=== PATIENT | female | born 1985 | race Hispanic/Latino ===

== ENCOUNTER 2017-06-03 08:55 | Emergency (ER) | payer SELFPAY ==
[2017-06-03 09:46] LABS: Bicarbonate 26 mEq/L (21-31); Glucose Level 118 mg/dL (65-120); Potassium 3.5 mEq/L (3.6-5.0); Sodium Level 136 mEq/L (135-145)
[2017-06-03 09:47] LABS: Absolute Lymphocytes (CBC) 2.4 K/uL (0.7-4.9); Absolute Monocytes 0.4 K/uL (0.1-1.3); Absolute Neutrophil 3.9 K/uL (1.8-8.0); BUN Blood Urea Nitrogen 6 mg/dL (6-20); Basophils % 0.7 % (0-1.3); Eosinophils % 2.6 % (0-4.4); Glomerular Filtration Rate > 90 mL/min (=/>90); Hematocrit 43.4 % (36.0-45.0); Lymphocytes % 34.5 % (15.3-44.8); MCH 27.2 pg (27.0-35.0); MCV 82.2 fL (80-100); MPV 8.6 fL (7.6-11.3); RBC Red Blood Cell Count 5.28 M/uL (3.86-4.86)
--- NOTE | 2017-06-03 09:58 | RAD REPORT ---
EXAM DESCRIPTION: CT - Stone Protocol - 06/03/2017 9:45 am CLINICAL HISTORY: Abdominal pain. Lower abdominal pain. Urinary frequency COMPARISON: July 2016 TECHNIQUE: Computed axial tomography of the abdomen pelvis was obtained without oral or IV contrast. Lack of IV and oral contrast limits evaluation of solid organs, bowel, and vessels. Coronal reformat jacki images were obtained and reviewed. All CT scans are performed using dose optimization technique as appropriate and may include automated exposure control or mA/KV adjustment according to patient size. FINDINGS: A 2 millimeter calculus is present within the left kidney. Mild left hydronephrosis and hy droureter is seen. 4 millimeter calculus is present at the left ureteral vesicle junction. A right renal calculus is not seen. The liver, spleen, pancreas and adrenals appear grossly normal There is no evidence of diverticulitis. The appendix appears normal A tiny umbilical hernia is present IMPRESSION: 4 millimeter calculus at the left ureterovesical junction resulting in mild left hydrone phrosis
[2017-06-03] MEDS ORDERED: KETOROLAC 30 MG/ML INJ ONE (10:11)
[2017-06-03 10:31] LABS: Urine Blood 2+ (NEG); Urine Glucose NEGATIVE (NEG); Urine Protein 1+ (NEG); Urine Specific Gravity 1.025 (1.005-1.030)
[2017-06-03] MEDS ORDERED: TAMSULOSIN 0.4 MG SR CAP ONE (10:37)
--- NOTE | 2017-06-03 10:38 | EDPHYS ---
Physician Documentation [facility] Name: Yancy Caceres Age: 31 yrs Sex: Female : 1985 Arrival Date: 06/03/2017 Time: 08:58 Bed 15 Private MD: ED Physician Ambrosio Mckeon HPI: 06/03 09:04 This 31 yrs old Female presents to ER via Unassigned with complaints of Flank kb Pain, Low Back Pain, Nausea. 09:04 The patient complains of pain in the left flank. The pain radiates to the left lower kb quadrant. Onset: The symptoms/episode began/occurred this morning, at 06:00. Modifying factors: The symptoms are alleviated by nothing. the symptoms are aggravated by palpation/percussion. Associated signs and symptoms: The patient has no apparent associated signs or symptoms. Severity of pain: At its worst the pain was severe in the emergency department the pain is unchanged. The patient has experienced a previous episode, but today's symptoms are worse. The patient has not recently seen a physician. Pt states she started having left flank pain at 0600. Pain radiates around to LLQ. States she had kidney stones in the past with similar pain. 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 - Social history:: Smoking status: Patient/guardian denies using tobacco, Patient/guardian denies using alcohol. ROS: 09:04 Constitutional: Negative for fever, chills, and weight loss, Cardiovascular: Negative kb for chest pain, palpitations, and edema, Respiratory: Negative for shortness of breath, cough, wheezing, and pleuritic chest pain, MS/Extremity: Negative for injury and deformity, Skin: Negative for injury, rash, and discoloration, Neuro: Negative for headache, weakness, numbness, tingling, and seizure. 09:04 Abdomen/GI: Positive for abdominal pain, Negative for nausea, vomiting, and diarrhea, constipation, abdominal cramps, abdominal distension, anorexia. 09:04 : Positive for flank pain. Exam: 09:04 Constitutional: This is a well developed, well nourished patient who is awake, alert, kb and in no acute distress. Head/Face: Normocephalic, atraumatic. Chest/axilla: Normal chest wall appearance and motion. Nontender with no deformity. No lesions are appreciated. Cardiovascular: Regular rate and rhythm with a normal S1 and S2. No gallops, murmurs, or rubs. Normal PMI, no JVD. No pulse deficits. Respiratory: Lungs have equal breath sounds bilaterally, clear to auscultation and percussion. No rales, rhonchi or wheezes noted. No increased work of breathing, no retractions or nasal flaring. Skin: Warm, dry with normal turgor. Normal color with no rashes, no lesions, and no evidence of cellulitis. MS/ Extremity: Pulses equal, no cyanosis. Neurovascular intact. Full, normal range of motion. Neuro: Awake and alert, GCS 15, oriented to person, place, time, and situation. Cranial nerves II-XII grossly intact. Motor strength 5/5 in all extremities. Sensory grossly intact. Cerebellar exam normal. Normal gait. 09:04 Abdomen/GI: Inspection: abdomen appears normal, Bowel sounds: normal, in all quadrants, Palpation: moderate abdominal tenderness, in the left lower quadrant. 09:04 Back: pain, that is moderate, that is severe, of the left flank, ROM is normal, normal spinal alignment noted, CVA tenderness, that is severe, is noted on the left. Vital Signs: 09:07 BP 150 / 112; Pulse 103; Resp 18; Temp 98.4(TE); Pulse Ox 100% on R/A; Weight 99.79 kg; Height 5 ft. 3 in. (160.02 cm); Pain 10/10; 10:27 BP 123 / 79; Pulse 85; Resp 18; Temp 98.1; Pulse Ox 100% on R/A; hj 09:07 Body Mass Index 38.97 (99.79 kg, 160.02 cm) MDM: 09:00 Patient medically screened. kb 09:07 Data reviewed: vital signs, nurses notes. Data interpreted: Pulse oximetry: on room air kb is 100 %. Interpretation: normal. 10:25 Counseling: I had a detailed discussion with the patient and/or guardian regarding: the kb historical points, exam findings, and any diagnostic results supporting the discharge/admit diagnosis, lab results, radiology results, the need for outpatient follow up, a urologist, to return to the emergency department if symptoms worsen or persist or if there are any questions or concerns that arise at home. ED course: Pain controlled at this time. Educated on diagnostics, medications and follow up. Verbal understanding received. . 06/03 09:08 Order name: CBC with Diff; Complete Time: 09:47 kb 06/03 09:08 Order name: Basic Metabolic Panel; Complete Time: 09:47 kb 06/03 09:08 Order name: CT Stone Protocol; Complete Time: 10:00 kb 06/03 09:34 Order name: Urine Dipstick--Ancillary (enter results); Complete Time: 10:34 ms 06/03 09:34 Order name: Urine --Ancillary (enter results); Complete Time: 10:34 ms 06/03 09:08 Order name: IV Start; Complete Time: 09:25 kb 06/03 09:08 Order name: Urine Dipstick-Ancillary (obtain specimen); Complete Time: 09:25 kb 06/03 09:08 Order name: Urine Test (obtain specimen); Complete Time: 09:25 kb 06/03 10:25 Order name: Vital Signs; Complete Time: 10:27 kb Administered Medications: 09:09 Drug: NS 0.9% 1000 ml Route: IV; Rate: 1000 ml; Site: right antecubital; hj 11:07 Follow up: IV Status: Completed infusion hj 09:09 Drug: Zofran 4 mg Route: IVP; Site: right antecubital; hj 09:54 Follow up: Response: No adverse reaction; Nausea is decreased hj 09:09 Drug: morphine 4 mg Route: IVP; Site: right antecubital; hj 09:54 Follow up: Response: Pain is unchanged, physician notified hj 09:51 Drug: TORadol 30 mg Route: IVP; Site: right antecubital; hj 09:55 Follow up: Response: No adverse reaction hj 10:01 Drug: Flomax 0.4 mg Route: PO; hj 10:20 Follow up: Response: No adverse reaction Disposition: 13:44 Co-signature as Attending Physician, Ambrosio Mckeon MD I agree with the assessment and kdr plan of care. Disposition: 06/03/17 10:38 Discharged to Home. Impression: Calculus of kidney and ureter. - Condition is Stable. - Discharge Instructions: Kidney Stones, [id number], Dietary Guidelines to Help Prevent Kidney Stones. - Prescriptions for Tylenol- Codeine #3 300-30 mg Oral Tablet - take 1 tablet by ORAL route every 6 hours As needed; 15 tablet. Zofran 4 mg Oral Tablet - take 1 tablet by ORAL route every 6 hours As needed; 20 tablet. Flomax 0.4 mg Oral Capsule, Sust. Release 24 hr - take 1 capsule by ORAL route once daily; 10 capsule. Diclofenac Sodium 75 mg Oral Tablet, Delayed Release (E.C.) - take 1 tablet by ORAL route 2 times per day As needed; 30 tablet. Macrobid 100 mg Oral Capsule - take 1 capsule by ORAL route every 12 hours for 7 days; 14 capsule. - Medication Reconciliation Form, Thank You Letter, Antibiotic Education, Prescription Opioid Use form. - Follow up: Emergency Department; When: As needed; Reason: Worsening of condition. Follow up: Private Physician; When: 2 - 3 days; Reason: Recheck today's complaints, Continuance of care, Re-evaluation by your physician. Follow up: Brisa Quigley; When: 2 - 3 days; Reason: Recheck today's complaints. Signatures: Dispatcher [employer] Amelia Lau, JANICE-Yenny JIMENEZP-Ambrosio Brown MD MD kdr Joaquin, Henry RN RN hj
--- NOTE | 2017-06-03 10:38 | ER ---
Nurse's Notes [facility] Name: Yancy Caceres Age: 31 yrs Sex: Female : 1985 Arrival Date: 06/03/2017 Time: 08:58 Bed 15 Private MD: Diagnosis: Calculus of kidney and ureter Presentation: 06/03 09:04 Presenting complaint: Patient states: i have this terrible pain on my L flank that runs hj to my L lower abd, started 6 am today; per pt, hx of kidney stone;. Transition of care: patient was not received from another setting of care. Onset of symptoms was June 03, 2017. Care prior to arrival: None. 09:04 Method Of Arrival: Ambulatory 09:04 Acuity: HOLLIE 3 hj Triage Assessment: 09:06 General: Appears in no apparent distress. uncomfortable, Behavior is cooperative, hj appropriate for age, anxious, crying. Pain: Complains of pain in left lower quadrant and left flank Pain currently is 10 out of 10 on a pain scale. EENT: No signs and/or symptoms were reported regarding the EENT system. Neuro: Level of Consciousness is awake, alert, obeys commands, Oriented to person, place, time, situation, Appropriate for age. Cardiovascular: Capillary refill < 3 seconds Patient's skin is warm and dry. Respiratory: Airway is patent Respiratory effort is even, unlabored, Respiratory pattern is regular, symmetrical. GI: Reports lower abdominal pain. : No signs and/or symptoms were reported regarding the genitourinary system. Derm: No signs and/or symptoms reported regarding the dermatologic system. Musculoskeletal: No signs and/or symptoms reported regarding the musculoskeletal system. 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 - Social history:: Smoking status: Patient/guardian denies using tobacco, Patient/guardian denies using alcohol. Screenin:08 Abuse screen: Denies threats or abuse. Denies injuries from another. Nutritional hj screening: No deficits noted. Tuberculosis screening: No symptoms or risk factors identified. Fall Risk None identified. Assessment: 09:09 General: Appears in no apparent distress. uncomfortable, Behavior is cooperative, hj appropriate for age, anxious, crying. Pain: Complains of pain in abdomen and left lower quadrant and left flank. Neuro: Level of Consciousness is awake, alert, obeys commands, Oriented to person, place, time, situation, Appropriate for age. Cardiovascular: Capillary refill < 3 seconds Patient's skin is warm and dry. Respiratory: Airway is patent Respiratory effort is even, unlabored, Respiratory pattern is regular, symmetrical. GI: Abdomen is non-distended. : No signs and/or symptoms were reported regarding the genitourinary system. : Reports hx of kidney stone;. EENT: No signs and/or symptoms were reported regarding the EENT system. Derm: No signs and/or symptoms reported regarding the dermatologic system. Musculoskeletal: No signs and/or symptoms reported regarding the musculoskeletal system. 09:30 Reassessment: wheeled to CT;. hj Vital Signs: 09:07 BP 150 / 112; Pulse 103; Resp 18; Temp 98.4(TE); Pulse Ox 100% on R/A; Weight 99.79 kg; hj Height 5 ft. 3 in. (160.02 cm); Pain 10/10; 10:27 BP 123 / 79; Pulse 85; Resp 18; Temp 98.1; Pulse Ox 100% on R/A; hj 09:07 Body Mass Index 38.97 (99.79 kg, 160.02 cm) hj ED Course: 08:58 Patient arrived in ED. rg4 08:59 Amelia Angelo FNP-C [facility]. kb 08:59 Ambrosio Mckeon MD is Attending Physician. kb 09:01 Ryan Celis, PIPE is Primary Nurse. hj 09:05 Triage completed. hj 09:08 Arm band placed on right wrist. hj 09:09 Patient has correct armband on for positive identification. Placed in gown. Bed in low hj position. Call light in reach. Side rails up X 1. 09:09 Initial lab(s) drawn, by ED staff, sent to lab. Inserted saline lock: 22 gauge in right hj antecubital area, using aseptic technique. Blood collected. 09:15 Radiology exam delayed due to test not completed at this time. vr 09:35 Urine collected: clean catch specimen, cloudy. 5 09:45 CT Stone Protocol In Process Unspecified. EDMS 10:38 Brisa Quigley MD is Referral Physician. kb 11:05 No provider procedures requiring assistance completed. IV discontinued, intact, hj bleeding controlled, No redness/swelling at site. Pressure dressing applied. Administered Medications: 09:09 Drug: NS 0.9% 1000 ml Route: IV; Rate: 1000 ml; Site: right antecubital; hj 11:07 Follow up: IV Status: Completed infusion hj 09:09 Drug: Zofran 4 mg Route: IVP; Site: right antecubital; hj 09:54 Follow up: Response: No adverse reaction; Nausea is decreased hj 09:09 Drug: morphine 4 mg Route: IVP; Site: right antecubital; hj 09:54 Follow up: Response: Pain is unchanged, physician notified hj 09:51 Drug: TORadol 30 mg Route: IVP; Site: right antecubital; hj 09:55 Follow up: Response: No adverse reaction hj 10:01 Drug: Flomax 0.4 mg Route: PO; hj 10:20 Follow up: Response: No adverse reaction hj Outcome: 10:38 Discharge ordered by MD. kb 11:06 Discharged to home ambulatory. hj 11:06 Condition: stable 11:06 Discharge instructions given to patient, Instructed on discharge instructions, follow up and referral plans. medication usage, Demonstrated understanding of instructions, follow-up care, medications, Prescriptions given X 5 meds 11:06 Patient left the ED. hj Signatures: Dispatcher [employer] EDMS Amelia Angelo, [place]-Ashlyn Tony Henry, Estrellita Stiles RN, Maria [facility], [place]
== END 2017-06-03 11:06 | disposition home or self-care (01) ==
LOC: ER 08:55
DX: N20.2 Calculus of kidney with calculus of ureter (principal)
CPT/HCPCS: 36415; 74176; 76377; 80048; 81003; 81025; 85025; 96361; 96374; 96375; 99284

== ENCOUNTER 2019-02-02 08:48 | Emergency (ER) | payer SELFPAY ==
[2019-02-02] MEDS ORDERED: KETOROLAC 30 MG/ML INJ ONE (09:17)
[2019-02-02] MEDS ORDERED: dexAMETHasone 10 MG/ML VIAL ONE (09:17)
[2019-02-02] MEDS ORDERED: NA CHLORIDE 0.9% 1,000 ML ONE (09:17)
[2019-02-02] MEDS ORDERED: METOCLOPRAMIDE 10 MG/2mL INJ ONE (09:17)
--- NOTE | 2019-02-02 10:07 | ER ---
Nurse's Notes [facility] Name: Yancy Caceres Age: 33 yrs Sex: Female : 1985 Arrival Date: 02/02/2019 Time: 08:50 Bed 14 Private MD: Diagnosis: Headache;Myalgia Presentation: 02/02 08:55 Presenting complaint: Upper back and neck pain x 3 days. Transition of care: patient hb was not received from another setting of care. Onset of symptoms was January 31, 2019. Risk Assessment: Do you want to hurt yourself or someone else? Patient reports no desire to harm self or others. Initial Sepsis Screen: Does the patient meet any 2 criteria? No. Patient's initial sepsis screen is negative. Does the patient have a suspected source of infection? No. Patient's initial sepsis screen is negative. Care prior to arrival: None. 08:55 Method Of Arrival: Ambulatory hb 08:55 Acuity: HOLLIE 4 hb Triage Assessment: 08:55 Headache History: Denies prior headaches. Pain: Also complains of no other associated rb1 symptoms. 08:55 Pain: Pain currently is 8 out of 10 on a pain scale. 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 - Social history:: Smoking status: Patient/guardian denies using tobacco. - Ebola Screening: : No symptoms or risks identified at this time. Screenin:55 Abuse screen: Denies threats or abuse. Nutritional screening: No deficits noted. rb1 Tuberculosis screening: No symptoms or risk factors identified. Fall Risk None identified. Assessment: 08:55 General: Appears in no apparent distress. comfortable, Behavior is calm, cooperative. rb1 Pain: Complains of pain in right trapezius and left trapezius and back of head Pain currently is 8 out of 10 on a pain scale. Pain began x 3 days. Neuro: Level of Consciousness is awake, alert, obeys commands, Oriented to person, place, time, situation. Cardiovascular: Capillary refill < 3 seconds is brisk in bilateral fingers. Respiratory: Airway is patent Respiratory effort is even, unlabored, Respiratory pattern is regular, symmetrical. GI: No signs and/or symptoms were reported involving the gastrointestinal system. : No signs and/or symptoms were reported regarding the genitourinary system. Derm: Skin is pink, warm \T\ dry. Musculoskeletal: Range of motion: intact in all extremities. Vital Signs: 08:56 BP 124 / 79; Pulse 68; Resp 16; Temp 98.3; Pulse Ox 99% ; Weight 113.4 kg; Height 5 ft. hb 5 in. (165.10 cm); Pain 7/10; 08:56 Body Mass Index 41.60 (113.40 kg, 165.10 cm) hb [place] Coma Score: 09:09 Eye Response: spontaneous(4). Verbal Response: oriented(5). Motor Response: obeys kb commands(6). Total: 15. ED Course: 08:50 Patient arrived in ED. as 08:55 Patient has correct armband on for positive identification. Bed in low position. Call rb1 light in reach. Side rails up X 1. Pulse ox on. NIBP on. 08:56 Triage completed. hb 08:56 Arm band placed on. hb 09:04 Amelia Angel[facility] F[facility]-C [facility]. kb 09:04 Porter Resendiz MD is Attending Physician. kb 09:11 Aracely Kim, PIPE is Primary Nurse. rb1 09:25 Inserted saline lock: 22 gauge in right antecubital area, using aseptic technique. rb1 Blood collected. 10:14 IV discontinued, intact, bleeding controlled, No redness/swelling at site. Pressure hb dressing applied. 10:14 No provider procedures requiring assistance completed. rb1 Administered Medications: 09:25 Drug: NS 0.9% 1000 ml Route: IV; Rate: 1000 ml; Site: right antecubital; rb1 10:10 Follow up: IV Status: Completed infusion rb1 09:25 Drug: Reglan 10 mg Route: IVP; Site: right antecubital; rb1 09:40 Follow up: Response: No adverse reaction rb1 09:25 Drug: TORadol - Ketorolac 15 mg Route: IVP; Site: right antecubital; rb1 09:40 Follow up: Response: No adverse reaction; Pain is decreased rb1 09:25 Drug: Decadron - Dexamethasone 10 mg Route: IVP; Site: right antecubital; rb1 09:40 Follow up: Response: No adverse reaction rb1 Outcome: 10:07 Discharge ordered by . irvin 10:14 Discharged to home ambulatory, with family. hb 10:14 Condition: stable 10:14 Discharge instructions given to patient, family, Instructed on discharge instructions, follow up and referral plans. medication usage, Demonstrated understanding of instructions, follow-up care, medications, Prescriptions given X 2. 10:14 Patient left the ED. hb Signatures: Amelia Angelo, JANICE-C JANICE-Rehana Rivera Rebecca, RN RN rb1 Eli Arroyo, RN RN hb
--- NOTE | 2019-02-02 10:08 | EDPHYS ---
Physician Documentation [facility] Name: Yancy Caceres Age: 33 yrs Sex: Female : 1985 Arrival Date: 02/02/2019 Time: 08:50 Bed 14 Private MD: ED Physician Porter Resendiz HPI: 02/02 09:09 This 33 yrs old Female presents to ER via Ambulatory with complaints of kb Headache. 09:09 The patient complains of pain to the left base of the skull and right base of the kb skull. The patient describes the headache as constant. Onset: The symptoms/episode began/occurred 3 day(s) ago. Associated signs and symptoms: Pertinent positives: This patient does not have any pertinent positive signs or symptoms associated with a headache. Pertinent negatives: fever, nausea, Photophobia. Severity of symptoms: At its worst the pain was moderate, in the emergency department the pain is unchanged. Headache History: Denies prior headaches. The symptoms are alleviated by nothing. the symptoms are aggravated by nothing. The patient has not experienced similar symptoms in the past. The patient has not recently seen a physician. Pt reports headache to base of head that radiates into shoulders. No vertebral tenderness, fever.. 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 - Social history:: Smoking status: Patient/guardian denies using tobacco. - Ebola Screening: : No symptoms or risks identified at this time. ROS: 09:09 Constitutional: Negative for fever, chills, and weight loss, Cardiovascular: Negative kb for chest pain, palpitations, and edema, Respiratory: Negative for shortness of breath, cough, wheezing, and pleuritic chest pain, Abdomen/GI: Negative for abdominal pain, nausea, vomiting, diarrhea, and constipation, MS/Extremity: Negative for injury and deformity, Skin: Negative for injury, rash, and discoloration. 09:09 Neck: Positive for pain with movement, pain at rest, tenderness, of the left trapezius and right trapezius. 09:09 Neuro: Positive for headache. Exam: 10:06 Constitutional: This is a well developed, well nourished patient who is awake, alert, kb and in no acute distress. Head/Face: Normocephalic, atraumatic. ENT: Nares patent. No nasal discharge, no septal abnormalities noted. Tympanic membranes are normal and external auditory canals are clear. Oropharynx with no redness, swelling, or masses, exudates, or evidence of obstruction, uvula midline. Mucous membranes moist. Neck: Trachea midline, no thyromegaly or masses palpated, and no cervical lymphadenopathy. Supple, full range of motion without nuchal rigidity, or vertebral point tenderness. No Meningismus. Chest/axilla: Normal chest wall appearance and motion. Nontender with no deformity. No lesions are appreciated. Cardiovascular: Regular rate and rhythm with a normal S1 and S2. No gallops, murmurs, or rubs. Normal PMI, no JVD. No pulse deficits. Respiratory: Lungs have equal breath sounds bilaterally, clear to auscultation and percussion. No rales, rhonchi or wheezes noted. No increased work of breathing, no retractions or nasal flaring. Abdomen/GI: Soft, non-tender, with normal bowel sounds. No distension or tympany. No guarding or rebound. No evidence of tenderness throughout. Skin: Warm, dry with normal turgor. Normal color with no rashes, no lesions, and no evidence of cellulitis. MS/ Extremity: Pulses equal, no cyanosis. Neurovascular intact. Full, normal range of motion. Neuro: Awake and alert, GCS 15, oriented to person, place, time, and situation. Cranial nerves II-XII grossly intact. Motor strength 5/5 in all extremities. Sensory grossly intact. Cerebellar exam normal. Normal gait. 10:06 Back: pain, that is moderate, of the left trapezius and right trapezius. Vital Signs: 08:56 BP 124 / 79; Pulse 68; Resp 16; Temp 98.3; Pulse Ox 99% ; Weight 113.4 kg; Height 5 ft. hb 5 in. (165.10 cm); Pain 7/10; 08:56 Body Mass Index 41.60 (113.40 kg, 165.10 cm) hb Nai Coma Score: 09:09 Eye Response: spontaneous(4). Verbal Response: oriented(5). Motor Response: obeys kb commands(6). Total: 15. MDM: 09:04 Patient medically screened. kb 09:09 Data reviewed: vital signs, nurses notes. Data interpreted: Pulse oximetry: on room air kb is 99 %. Interpretation: normal. 10:06 Counseling: I had a detailed discussion with the patient and/or guardian regarding: the kb historical points, exam findings, and any diagnostic results supporting the discharge/admit diagnosis, the need for outpatient follow up, a family practitioner, a neurologist, to return to the emergency department if symptoms worsen or persist or if there are any questions or concerns that arise at home. 02/02 09:09 Order name: IV Start; Complete Time: 09:32 kb Administered Medications: 09:25 Drug: NS 0.9% 1000 ml Route: IV; Rate: 1000 ml; Site: right antecubital; rb1 10:10 Follow up: IV Status: Completed infusion rb1 09:25 Drug: Reglan 10 mg Route: IVP; Site: right antecubital; rb1 09:40 Follow up: Response: No adverse reaction rb1 09:25 Drug: TORadol - Ketorolac 15 mg Route: IVP; Site: right antecubital; rb1 09:40 Follow up: Response: No adverse reaction; Pain is decreased rb1 09:25 Drug: Decadron - Dexamethasone 10 mg Route: IVP; Site: right antecubital; rb1 09:40 Follow up: Response: No adverse reaction rb1 Disposition: 17:41 Co-signature as Attending Physician, Porter Resendiz MD Did not see or evaluate the ps1 patient. Signing the chart for administrative purposes. Not an endorsement of care provided. . Disposition: 02/02/19 10:07 Discharged to Home. Impression: Headache, Myalgia. - Condition is Stable. - Discharge Instructions: Muscle Pain, Adult, General Headache Without Cause, [id number]. - Prescriptions for Cyclobenzaprine 10 mg Oral Tablet - take 1 tablet by ORAL route every 8 hours As needed; 21 tablet. Diclofenac Sodium 75 mg Oral Tablet, Delayed Release (E.C.) - take 1 tablet by ORAL route 2 times per day As needed; 30 tablet. - Medication Reconciliation Form, Thank You Letter, Antibiotic Education, Prescription Opioid Use form. - Follow up: Emergency Department; When: As needed; Reason: Worsening of condition. Follow up: Private Physician; When: 2 - 3 days; Reason: Recheck today's complaints, Continuance of care, Re-evaluation by your physician. Signatures: Amelia Angelo FNP-C FNP-Aracely Taveras, RN RN [facility] Eli Arroyo RN RN Porter Resendiz MD MD ps1 Corrections: (The following items were deleted from the chart) 10:14 10:07 02/02/2019 10:07 Discharged to Home. Impression: Headache; Myalgia. Condition is hb Stable. Forms are Medication Reconciliation Form, Thank You Letter, Antibiotic Education, Prescription Opioid Use. Follow up: Emergency Department; When: As needed; Reason: Worsening of condition. Follow up: Private Physician; When: 2 - 3 days; Reason: Recheck today's complaints, Continuance of care, Re-evaluation by your physician. kb
[2019-02-02 10:22] VITALS: BP 124/79; TEMP 98.3; O2SAT 99
== END 2019-02-02 10:14 | disposition home or self-care (01) ==
LOC: ER 08:48
DX: R51 Headache (principal); M79.10 Myalgia, unspecified site
CPT/HCPCS: 96361; 96374; 96375; 99284; J1100; J2765; J7030

== ENCOUNTER 2020-02-20 05:52 | Emergency (ER) | payer SELFPAY ==
--- OUTSIDE RECORDS SUMMARY | 2020-02-20 05:54 | XMS REPORT | Continuity of Care Document ---
:1985 Author Organization [facility] t Address [address] [place] [address] Care Team Providers Name Role Phone Isabella Gonzalez Attending Clinician Problems This patient has no known problems. Allergies, Adverse Reactions, Alerts This patient has no known allergies or adverse reactions. Medications This patient has no known medications. Procedures This patient has no known procedures. 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
[2020-02-20] MEDS ORDERED: IBUPROFEN 400 MG TAB ONE (06:46)
--- NOTE | 2020-02-20 08:13 | RAD REPORT ---
EXAM DESCRIPTION: RAD - Ankle Left 3 View - 02/20/2020 7:34 am CLINICAL HISTORY: PAIN, pain with weight-bearing, no known precipitating injury COMPARISON: No comparisons FINDINGS: No fracture, dislocation or periosteal reaction. No joint effusion seen. No joint space na rrowing. No plantar spur identified. Soft tissues around the ankle are prominent with the baseline fo r the patient unknown. IMPRESSION: No acute bone or joint finding. Soft tissue swelling evident with the baseline soft tissue appearance unknown.
--- NOTE | 2020-02-20 08:14 | RAD REPORT ---
EXAM DESCRIPTION: RAD - Foot Left 3 View - 02/20/2020 7:34 am CLINICAL HISTORY: PAIN, pain with weight-bearing common no known precipitating event COMPARISON: No comparisons FINDINGS: No fracture, dislocation or periosteal reaction. No acute or destructive bony process. Soft tissues around the ankle and foot are prominent. Baseline for the patient is unknown. IMPRESSION: Soft tissue swelling is evident with the baseline appearance for the patient unknown. No air or foreign body in the soft tissues. No acute bone or joint finding.
--- NOTE | 2020-02-20 13:20 | ER ---
Nurse's Notes [facility] Name: Yancy Caceres Age: 34 yrs Sex: Female : 1985 Arrival Date: 02/20/2020 Time: 05:55 Bed 25 Private MD: Diagnosis: Sprain of ankle;Sprain of foot Presentation: 02/19 06:28 Chief complaint: Patient states: Left foot pain since Sunday, denies any known injury. aj1 States she was walking to the bathroom and suddenly the foot started hurting so bad that she can't walk on it. Coronavirus screen: At this time, the client does not indicate any symptoms associated with coronavirus-19. Ebola Screen: Patient denies travel to an Ebola-affected area in the 21 days before illness onset. Initial Sepsis Screen: Does the patient meet any 2 criteria? No. Patient's initial sepsis screen is negative. Does the patient have a suspected source of infection? No. Patient's initial sepsis screen is negative. Risk Assessment: Do you want to hurt yourself or someone else? Patient reports no desire to harm self or others. Onset of symptoms was February 2020. 06:28 Method Of Arrival: Wheelchair aj1 06:28 Acuity: HOLLIE 4 aj1 Triage Assessment: 06:30 General: Appears in no apparent distress. uncomfortable, Behavior is calm, cooperative, aj1 appropriate for age. Pain: Complains of pain in left foot Pain does not radiate. Pain currently is 10 out of 10 on a pain scale. Neuro: Level of Consciousness is awake, alert, obeys commands, Oriented to person, place, time, situation. Cardiovascular: Patient's skin is warm and dry. Respiratory: Airway is patent Respiratory effort is even, unlabored, Respiratory pattern is regular, symmetrical. GI: No signs and/or symptoms were reported involving the gastrointestinal system. : No signs and/or symptoms were reported regarding the genitourinary system. 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 - Social history:: Smoking status: Patient/guardian denies using tobacco. - Family history:: not pertinent. Screenin:48 Abuse screen: Denies threats or abuse. Denies injuries from another. Nutritional sg screening: No deficits noted. Tuberculosis screening: No symptoms or risk factors identified. Never had TB. Fall Risk None identified. Assessment: 06:48 Reassessment: xray at bedside at this time. sg 06:50 General: Appears in no apparent distress. well groomed, well developed, well nourished, sg Behavior is calm, cooperative, appropriate for age. Pain: Complains of pain in dorsum of left foot Quality of pain is described as aching. Neuro: Level of Consciousness is awake, alert, obeys commands, Facial symmetry appears normal. Cardiovascular: Patient's skin is warm and dry. Respiratory: Airway is patent Respiratory effort is even, unlabored, Respiratory pattern is regular, symmetrical. GI: No signs and/or symptoms were reported involving the gastrointestinal system. : No signs and/or symptoms were reported regarding the genitourinary system. EENT: No signs and/or symptoms were reported regarding the EENT system. Derm: Skin is pink, warm \T\ dry. Musculoskeletal: Circulation, motion, and sensation intact. Range of motion: intact in all extremities. Vital Signs: 06:28 BP 110 / 65; Pulse 77; Resp 18; Temp 98.1; Pulse Ox 100% on R/A; Weight 104.33 kg (R); aj1 Height 5 ft. 3 in. (160.02 cm) (R); Pain 10/10; 06:28 Body Mass Index 40.74 (104.33 kg, 160.02 cm) aj1 ED Course: 05:55 Patient arrived in ED. am2 06:16 Rosalio Correa MD is Attending Physician. [facility] 06:30 Triage completed. aj1 06:30 Arm band placed on Patient placed in waiting room. aj1 06:48 No provider procedures requiring assistance completed. Patient did not have IV access sg during this emergency room visit. 06:50 Patient has correct armband on for positive identification. Bed in low position. Call sg light in reach. Pulse ox on. NIBP on. 07:19 Julio Cesar Huang MD is Referral Physician. shalini Administered Medications: 06:34 Drug: Motrin 400 mg Route: PO; aj1 06:47 Follow up: Response: No adverse reaction sg Outcome: 07:19 Discharge ordered by . shalini 07:44 Patient left the ED. sg Signatures: Ronit Sanchez RN RN aj1 Bonifacio Coronado RN RN sg Anderson, Corey, MD MD cha Moreno, Amanda am2
--- NOTE | 2020-02-20 13:20 | EDPHYS ---
Physician Documentation [facility] Name: Yancy Caceres Age: 34 yrs Sex: Female : 1985 Arrival Date: 02/20/2020 Time: 05:55 Bed 25 Private MD: ED Physician Rosalio Correa HPI: 02/19 06:17 This 34 yrs old Female presents to ER via Unassigned with complaints of Foot shalini Pain. 06:17 The patient presents with decreased range of motion, pain, that is acute. The shalini complaints affect the left foot, dorsum of left foot. Context: The problem was sustained at an unknown location, resulted from an unknown cause. Onset: The symptoms/episode began/occurred 2 day(s) ago. Modifying factors: The symptoms are alleviated by elevation of extremity, the symptoms are aggravated by weight bearing, movement. Associated signs and symptoms: The patient has no apparent associated signs or symptoms. Severity of symptoms: At their worst the symptoms were mild, moderate, in the emergency department the symptoms are unchanged. The patient has not experienced similar symptoms in the past. 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 - Social history:: Smoking status: Patient/guardian denies using tobacco. - Family history:: not pertinent. ROS: 06:17 Constitutional: Negative for fever, chills, and weight loss, Eyes: Negative for injury, shalini pain, redness, and discharge, ENT: Negative for injury, pain, and discharge, Neck: Negative for injury, pain, and swelling, Cardiovascular: Negative for chest pain, palpitations, and edema, Respiratory: Negative for shortness of breath, cough, wheezing, and pleuritic chest pain, Abdomen/GI: Negative for abdominal pain, nausea, vomiting, diarrhea, and constipation, Back: Negative for injury and pain, : Negative for injury, bleeding, discharge, and swelling, Skin: Negative for injury, rash, and discoloration, Neuro: Negative for headache, weakness, numbness, tingling, and seizure, Psych: Negative for depression, anxiety, suicide ideation, homicidal ideation, and hallucinations, Allergy/Immunology: Negative for hives, rash, and allergies, Endocrine: Negative for neck swelling, polydipsia, polyuria, polyphagia, and marked weight changes, Hematologic/Lymphatic: Negative for swollen nodes, abnormal bleeding, and unusual bruising. 06:17 MS/extremity: Positive for decreased range of motion, pain, tenderness, of the dorsum of left foot. Exam: 06:17 Constitutional: This is a well developed, well nourished patient who is awake, alert, shalini and in no acute distress. Head/Face: Normocephalic, atraumatic. Eyes: Pupils equal round and reactive to light, extra-ocular motions intact. Lids and lashes normal. Conjunctiva and sclera are non-icteric and not injected. Cornea within normal limits. Periorbital areas with no swelling, redness, or edema. ENT: Nares patent. No nasal discharge, no septal abnormalities noted. Tympanic membranes are normal and external auditory canals are clear. Oropharynx with no redness, swelling, or masses, exudates, or evidence of obstruction, uvula midline. Mucous membranes moist. Neck: Trachea midline, no thyromegaly or masses palpated, and no cervical lymphadenopathy. Supple, full range of motion without nuchal rigidity, or vertebral point tenderness. No Meningismus. Chest/axilla: Normal chest wall appearance and motion. Nontender with no deformity. No lesions are appreciated. Cardiovascular: Regular rate and rhythm with a normal S1 and S2. No gallops, murmurs, or rubs. Normal PMI, no JVD. No pulse deficits. Respiratory: Lungs have equal breath sounds bilaterally, clear to auscultation and percussion. No rales, rhonchi or wheezes noted. No increased work of breathing, no retractions or nasal flaring. Abdomen/GI: Soft, non-tender, with normal bowel sounds. No distension or tympany. No guarding or rebound. No evidence of tenderness throughout. Back: No spinal tenderness. No costovertebral tenderness. Full range of motion. Skin: Warm, dry with normal turgor. Normal color with no rashes, no lesions, and no evidence of cellulitis. Neuro: Awake and alert, GCS 15, oriented to person, place, time, and situation. Cranial nerves II-XII grossly intact. Motor strength 5/5 in all extremities. Sensory grossly intact. Cerebellar exam normal. Normal gait. Psych: Awake, alert, with orientation to person, place and time. Behavior, mood, and affect are within normal limits. 06:17 Musculoskeletal/extremity: Extremities: noted in the dorsum of left foot: decreased ROM, pain, ROM: full active range of motion, full passive range of motion, Circulation is intact in all extremities. Sensation intact. Compartment Syndrome exam of affected extremity: is normal. Joints: limited range of motion, pain at rest, painful range of motion, tenderness, Weight bearing: able to fully bear weight, DVT Exam: no swelling, negative Homans' sign noted on exam, no appreciated bluish discoloration, no erythema, no increased warmth, pain, tenderness. Vital Signs: 06:28 BP 110 / 65; Pulse 77; Resp 18; Temp 98.1; Pulse Ox 100% on R/A; Weight 104.33 kg (R); aj1 Height 5 ft. 3 in. (160.02 cm) (R); Pain 10/10; 06:28 Body Mass Index 40.74 (104.33 kg, 160.02 cm) aj MDM: 06:17 Differential diagnosis: fracture, sprain, arthritis. Data reviewed: vital signs, nurses [facility] notes, radiologic studies, plain films. Data interpreted: library monitor: not applicable for this patient encounter. rate is 76 beats/min, rhythm is regular, Pulse oximetry: on room air is 96 %. Test interpretation: by ED physician or midlevel provider: plain radiologic studies. Counseling: I had a detailed discussion with the patient and/or guardian regarding: the historical points, exam findings, and any diagnostic results supporting the discharge/admit diagnosis, radiology results, the need for outpatient follow up, for definitive care, a orthopedic surgeon. 06:47 Patient medically screened. [facility] 02/19 06:17 Order name: Bakari wrap-joint; Complete Time: 07:39 [facility] 02/19 06:17 Order name: Ice pack; Complete Time: 06:34 [facility] 02/19 07:30 Order name: Post-op shoe; Complete Time: 07:39 [facility] Administered Medications: 06:34 Drug: Motrin 400 mg Route: PO; [facility] 06:47 Follow up: Response: No adverse reaction sg Disposition: 02/20/20 07:19 Discharged to Home. Impression: Sprain of ankle, Sprain of foot. - Condition is Stable. - Discharge Instructions: Ankle Sprain, Foot Sprain, Ankle Sprain, [id number], Ankle Pain. - Prescriptions for Motrin IB 200 mg Oral Tablet - take 2 tablet by ORAL route every 6 hours As needed as needed with food; 30 tablet. Tylenol- Codeine #3 300-30 mg Oral Tablet - take 2 tablets by ORAL route every 6 hours As needed; 20 tablet. - Medication Reconciliation Form, Thank You Letter, Antibiotic Education, Prescription Opioid Use form. - Follow up: Private Physician; When: 2 - 3 days; Reason: Recheck today's complaints, Continuance of care, Re-evaluation by your physician. Follow up: Julio Cesar Huang; When: 2 - 3 days; Reason: Recheck today's complaints, Re-evaluation by your physician. - Problem is new. - Symptoms have improved. Signatures: Ronit Sanchez RN RN aj1 Bonifacio Coronado RN RN sg Rosalio Correa MD MD cha Corrections: (The following items were deleted from the chart) 07:44 07:19 02/20/2020 07:19 Discharged to Home. Impression: Sprain of ankle; Sprain of foot. sg Condition is Stable. Discharge Instructions: Ankle Sprain, Ankle Sprain, [id number], Ankle Pain. Prescriptions for Motrin IB 200 mg Oral Tablet - take 2 tablet by ORAL route every 6 hours As needed as needed with food; 30 tablet. and Forms are Medication Reconciliation Form, Thank You Letter, Antibiotic Education, Prescription Opioid Use. Follow up: Private Physician; When: 2 - 3 days; Reason: Recheck today's complaints, Continuance of care, Re-evaluation by your physician. Follow up: Julio Cesar Huang; When: 2 - 3 days; Reason: Recheck today's complaints, Re-evaluation by your physician. Problem is new. Symptoms have improved. shalini
[2020-02-23 13:24] VITALS: BP 110/65; TEMP 98.1; O2SAT 100
== END 2020-02-20 07:44 | disposition home or self-care (01) ==
LOC: ER 05:52
DX: S93.402A Sprain of unspecified ligament of left ankle, initial encounter (principal); S93.602A Unspecified sprain of left foot, initial encounter; X58.XXXA Exposure to other specified factors, initial encounter; Y93.9 Activity, unspecified; Y92.9 Unspecified place or not applicable
CPT/HCPCS: 99283

== ENCOUNTER 2020-03-06 19:38 | Emergency (ER) | payer SELFPAY ==
--- OUTSIDE RECORDS SUMMARY | 2020-03-06 19:40 | XMS REPORT | Continuity of Care Document ---
:1985 Author Organization [facility] t Address [address] [place] [address] Care Team Providers Name Role Phone Mitch PURI, [place] Attending Clinician Problems This patient has no known problems. Allergies, Adverse Reactions, Alerts This patient has no known allergies or adverse reactions. Medications This patient has no known medications. Procedures This patient has no known procedures. 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
[2020-03-06] MEDS ORDERED: ACETAMINOPHEN 500 MG TAB ONE (20:23)
--- NOTE | 2020-03-06 22:00 | ER ---
Nurse's Notes [facility] Name: Yancy Caceres Age: 34 yrs Sex: Female : 1985 Arrival Date: 03/06/2020 Time: 19:40 Bed 20 Private MD: Diagnosis: Pain in left ankle and joints of left foot Presentation: 03/06 20:04 Chief complaint: Patient states: Left foot pain continues since last visit here 02/19. ll1 No new trauma, can barely walk on it. Meds we gave her for home don't help. Coronavirus screen: Client denies travel out of the [place] in the last 14 days. At this time, the client does not indicate any symptoms associated with coronavirus-19. Ebola Screen: Patient denies travel to an Ebola-affected area in the 21 days before illness onset. Initial Sepsis Screen: Does the patient meet any 2 criteria? No. Patient's initial sepsis screen is negative. Does the patient have a suspected source of infection? Yes: Bone or joint infection. Risk Assessment: Do you want to hurt yourself or someone else? Patient reports no desire to harm self or others. Onset of symptoms was February 20, 2020. 20:04 Method Of Arrival: Wheelchair ll1 20:04 Acuity: HOLLIE 4 ll1 Triage Assessment: 20:04 General: Appears uncomfortable, Behavior is cooperative, appropriate for age, crying. ll1 Pain: Complains of pain in Top of L foot Pain currently is 10 out of 10 on a pain scale. Quality of pain is described as aching, throbbing. Neuro: No deficits noted. Cardiovascular: No deficits noted. Musculoskeletal: Circulation, motion, and sensation intact. Capillary refill < 3 seconds, Tenderness present in L foot Reports pain in L foot. Injury Description: Bruise no known new injury. Historical: - Allergies: 20:03 No Known Allergies; ll1 - PMHx: 20:03 Kidney stones; ll1 - PSHx: 20:03 Cholecystectomy; ll1 - Immunization history:: Flu vaccine is not up to date. - Social history:: Smoking status: Patient denies any tobacco usage or history of. Screenin:00 Abuse screen: Denies threats or abuse. Nutritional screening: No deficits noted. jb4 Tuberculosis screening: No symptoms or risk factors identified. Fall Risk None identified. Assessment: 21:00 General: Appears in no apparent distress. uncomfortable, Behavior is calm, cooperative, jb4 appropriate for age. Pain: Complains of pain in Left ankle Pain does not radiate. Pain currently is 10 out of 10 on a pain scale. Neuro: Level of Consciousness is awake, alert, obeys commands, Oriented to person, place, time, situation. Cardiovascular: Patient's skin is warm and dry. Respiratory: Airway is patent Respiratory effort is even, unlabored, Respiratory pattern is regular, symmetrical. GI: No signs and/or symptoms were reported involving the gastrointestinal system. : No signs and/or symptoms were reported regarding the genitourinary system. EENT: No signs and/or symptoms were reported regarding the EENT system. Derm: Skin is intact, Skin is pink, warm \T\ dry. Musculoskeletal: Circulation, motion, and sensation intact. Range of motion: intact in all extremities. 22:00 Reassessment: Patient appears in no apparent distress at this time. Patient and/or jb4 family updated on plan of care and expected duration. Pain level reassessed. Patient is alert, oriented x 3, equal unlabored respirations, skin warm/dry/pink. Vital Signs: 20:04 BP 128 / 88; Pulse 75; Resp 17; Temp 98.0; Pulse Ox 98% ; Weight 108.86 kg; Height 5 ll1 ft. 3 in. (160.02 cm); Pain 10/10; 20:04 Body Mass Index 42.51 (108.86 kg, 160.02 cm) ll1 ED Course: 19:40 Patient arrived in ED. rg4 20:03 Arm band placed on. ll1 20:05 Triage completed. ll1 20:59 Rosalio Park PA is PHCP. cp 20:59 Jb Garcia MD is Attending Physician. cp 21:00 Patient has correct armband on for positive identification. Bed in low position. Call jb4 light in reach. Side rails up X 1. 21:09 Corey Mcintosh, RN is Primary Nurse. jb4 21:58 Anoop Billings MD is Referral Physician. cp 21:59 XRAY Ankle LEFT 3 view In Process Unspecified. EDMS 22:30 No provider procedures requiring assistance completed. Patient did not have IV access jb4 during this emergency room visit. Administered Medications: 20:10 Drug: Tylenol 1000 mg Route: PO; ll1 21:00 Follow up: Response: No adverse reaction jb4 22:13 Drug: TORadol 30 mg Route: IM; Site: right deltoid; jb4 22:30 Follow up: Response: No adverse reaction jb4 Outcome: 21:58 Discharge ordered by . cp 22:30 Discharged to home via wheelchair, with family. jb4 22:30 Condition: stable 22:30 Discharge instructions given to patient, Instructed on discharge instructions, follow up and referral plans. medication usage, Demonstrated understanding of instructions, follow-up care, medications, Prescriptions given X 1. 22:42 Patient left the ED. jb4 Signatures: Dispatcher [employer] EDMS Rosalio Park PA PA cp Garcia, Rubi rg4 Corey Mcintosh RN RN jb4 Palmer Stanton RN RN ll1 Corrections: (The following items were deleted from the chart) 20:38 20:36 General: Appears uncomfortable, Behavior is cooperative, appropriate for age, ll1 crying, ll1 20:38 20:36 Pain: Complains of pain in Top of L foot Pain currently is 10 out of 10 on a pain ll1 scale. Quality of pain is described as aching, throbbing, ll1 20:38 20:36 Neuro: No deficits noted. ll1 ll1 20:38 20:36 Cardiovascular: No deficits noted. ll1 ll1 20:38 20:36 Musculoskeletal: Circulation, motion, and sensation intact. Capillary refill < 3 ll1 seconds, Tenderness present in L foot Reports pain in L foot ll1 20:38 20:36 Injury Description: Bruise no known new injury ll1 ll1
--- NOTE | 2020-03-06 22:00 | EDPHYS ---
Physician Documentation [facility] Name: Yancy Caceres Age: 34 yrs Sex: Female : 1985 Arrival Date: 03/06/2020 Time: 19:40 Bed 20 Private MD: ED Physician Jb Garcia HPI: 03/06 21:33 This 34 yrs old Female presents to ER via Wheelchair with complaints of Foot cp Injury. 21:33 The patient presents with pain, that is acute. The complaints affect the left lateral cp ankle. Context: resulted from an unknown cause, the patient can fully bear weight. 21:33 The patient has been recently seen at the [facility] Emergency cp Department, a couple of weeks ago, for similar complaints X-rays were performed, was given a prescription for pain medications, patient denies injury to left ankle. Historical: - Allergies: 20:03 No Known Allergies; ll1 - PMHx: 20:03 Kidney stones; ll1 - PSHx: 20:03 Cholecystectomy; ll1 - Immunization history:: Flu vaccine is not up to date. - Social history:: Smoking status: Patient denies any tobacco usage or history of. ROS: 21:40 MS/extremity: Positive for pain, swelling, tenderness, of the left lateral ankle, cp Negative for injury or acute deformity, decreased range of motion, paresthesias. 21:40 Constitutional: Negative for body aches, chills, fever, poor PO intake. cp 21:40 Cardiovascular: Negative for chest pain. 21:40 Respiratory: Negative for cough, shortness of breath, wheezing. 21:40 Abdomen/GI: Negative for abdominal pain. 21:40 Skin: Negative for rash. 21:40 All other systems are negative. Exam: 21:42 Constitutional: The patient appears in no acute distress, alert, awake, non-toxic, well cp developed, well nourished, obese. 21:42 Musculoskeletal/extremity: Extremities: grossly normal except: noted in the left cp lateral ankle: pain, swelling, tenderness, There is no evidence of deformity, erythema, ROM: limited passive range of motion due to pain, in the left ankle, Perfusion: the extremity is normally perfused throughout, Sensation intact. 21:42 Skin: cellulitis, is not appreciated, no rash present. Vital Signs: 20:04 BP 128 / 88; Pulse 75; Resp 17; Temp 98.0; Pulse Ox 98% ; Weight 108.86 kg; Height 5 ll1 ft. 3 in. (160.02 cm); Pain 10/; 20:04 Body Mass Index 42.51 (108.86 kg, 160.02 cm) ll1 MDM: 21:19 Patient medically screened. 21:57 Data reviewed: vital signs, nurses notes, radiologic studies, plain films, and as a cp result, I will discharge patient. 03/06 21:30 Order name: XRAY Ankle LEFT 3 view 03/06 22:05 Order name: Aircast Ankle Splint; Complete Time: 22:39 cp Administered Medications: 20:10 Drug: Tylenol 1000 mg Route: PO; ll1 21:00 Follow up: Response: No adverse reaction jb4 22:13 Drug: TORadol 30 mg Route: IM; Site: right deltoid; 4 22:30 Follow up: Response: No adverse reaction 4 Disposition: 21:15 Chart complete. 03/07 07:19 Co-signature as Attending Physician, Jb Garcia MD I agree with the assessment and 4 plan of care. Disposition: 03/06/20 21:58 Discharged to Home. Impression: Pain in left ankle and joints of left foot. - Condition is Stable. - Discharge Instructions: Ankle Pain. - Prescriptions for Tramadol 50 mg Oral Tablet - take 1 tablet by ORAL route every 8 hours as needed; 12 tablet. - Medication Reconciliation Form, Thank You Letter, Antibiotic Education, Prescription Opioid Use form. - Follow up: Anoop Billings MD; When: 2 - 3 days; Reason: Recheck today's complaints. - Problem is an ongoing problem. - Symptoms have improved. Signatures: Dispatcher [employer] EDMS Rosalio Prak PA PA cp Corey Mcintosh RN RN jb4 Jb Garcia MD MD tw4 Palmer Stanton RN RN ll1 Corrections: (The following items were deleted from the chart) 03/06 22:42 21:58 03/06/2020 21:58 Discharged to Home. Impression: Pain in left ankle and joints of jb4 left foot. Condition is Stable. Forms are Medication Reconciliation Form, Thank You Letter, Antibiotic Education, Prescription Opioid Use. Follow up: Dr. Anoop Billings; When: 2 - 3 days; Reason: Recheck today's complaints. Problem is an ongoing problem. Symptoms have improved. cp
[2020-03-06] MEDS ORDERED: KETOROLAC 30 MG/ML INJ ONE (22:20)
[2020-03-06 23:17] VITALS: BP 128/88; TEMP 98; O2SAT 98
--- NOTE | 2020-03-07 12:14 | RAD REPORT ---
EXAM DESCRIPTION: RAD - Ankle Left 3 View - 03/06/2020 9:55 pm CLINICAL HISTORY: PAIN COMPARISON: Ankle Left 3 View dated 02/20/2020 FINDINGS: Mild soft tissue swelling is seen about the ankle. No acute fracture or dislocation seen.
== END 2020-03-06 22:42 | disposition home or self-care (01) ==
LOC: ER 19:38
DX: M25.572 Pain in left ankle and joints of left foot (principal)
CPT/HCPCS: 96372; 99283